=== PATIENT | male | born 1990 | race Caucasian/White ===

== ENCOUNTER 2018-05-29 03:52 | Inpatient (IN) ==
[2018-05-29] MEDS ORDERED: Morphine Inj 4 MG/ML Vial IV.PUSH ONE ×2 (04:13→07:41)
[2018-05-29 05:04] LABS: Baso % (Auto) 0.6 % (0.0-2.0); Eos # (Auto) 0.1 th/mm3 (0.0-0.4); Eos % (Auto) 0.7 % (0.0-4.0); Hematocrit 45.6 % (39.0-51.0); Hemoglobin 15.7 gm/dL (13.0-17.0); Lymph # (Auto) 1.8 th/mm3 (1.0-4.8); Lymph % (Auto) 24.5 % (9.0-44.0); Mean Corpuscular HGB Conc 34.3 % (32.0-36.0); Mean Corpuscular Hemoglobin 29.8 pg (27.0-34.0); Mean Platelet Volume 9.6 fL (7.0-11.0); Mono # (Auto) 0.4 th/mm3 (0.0-0.9); Mono % (Auto) 4.9 % (0.0-8.0); Neut # (Auto) 5.1 th/mm3 (1.8-7.7); Neut % (Auto) 69.3 % (16.0-70.0); Platelet Count 246 th/mm3 (150-450); Red Blood Count 5.25 mil/mm3 (4.50-5.90); Red Cell Distribution Width 13.2 % (11.6-17.2); White Blood Count 7.4 th/mm3 (4.0-11.0)
[2018-05-29 05:08] LABS: Activated Partial Thrombo Time 24.4 sec (23.4-31.7); INR 1.1 Ratio; Prothrombin Time 10.7 sec (9.8-11.6)
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
[2018-05-29] MEDS: Sod Chloride 0.9% Inj 1,000 ML IV.CONT SCH ×2 (08:34→20:02)
[2018-05-29 09:08] LABS: Anion Gap 12 meq/L (5-15)
[2018-05-29 09:15] LABS: Blood Urea Nitrogen 13 mg/dL (7-18); Calcium 8.2 mg/dL (8.5-10.1); Chloride 108 meq/L (98-107); Glomerular Filtration Rate Greater Than 89 mL/min (>89); Glucose,Random 85 mg/dL (74-106); Potassium 4.4 meq/L (3.5-5.1); Sodium 141 meq/L (136-145)
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
[2018-05-29] MEDS: Morphine Sulfate Inj 2 MG/ML Vial IV.PUSH PRN ×2 (10:35→17:28)
[2018-05-29] MEDS ORDERED: ceFAZolin 2 GM Premix Inj 2 GM/50 ML PIGGYBACK IV.SIG ONE (13:34)
[2018-05-29] MEDS ORDERED: Bupivacaine/Epinephrine Inj 0.25% 50 ML Vial ONE (13:37)
[2018-05-29] MEDS ORDERED: Lidocaine PF 1% Inj 5 ML Syringe OTHER ONE (13:43)
[2018-05-29] MEDS ORDERED: Ketamine Inj 50 MG/5 ML Syringe IV.PUSH ONE (14:13)
[2018-05-29] MEDS ORDERED: *Meperidine Inj 25 MG/ML Vial PERIprocedural Use ONLY ONE (14:39)
[2018-05-29] MEDS ORDERED: *Ondansetron Inj 4 MG/2 ML Vial PERIprocedural Use ONLY ONE (14:40)
--- NOTE | 2018-05-29 14:42 | P.OP ---
- Preoperative Diagnosis (1) Bimalleolar fracture of right ankle - Postoperative Diagnosis (1) Bimalleolar fracture of right ankle Date of procedure: 05/29/18 Procedure: Open reduction internal fixation right ankle medial malleolus fracture. Implants: Synthes 4.0 cannulated screws Anesthesia: GETA Surgeon: Paulino Genao MD Search Analyst: Mikala Sanchez PA-C (Ashley) The surgical procedure was assisted by my physician's periodicals library assistant. Her presence was necessary throughout the case for manipulation and positioning of the surgical extremity. My PA was assisting me throughout the duration of this procedure. The skill set of the physician periodicals library assistant was medically necessary to complete this procedure. During the surgical case the surgical training specialist was working at the back table and the physician periodicals library assistant was directly assisting me. Estimated blood loss (mL): 25 Tourniquet time (min): 17 Pathology: none sent Operation and Findings: The patient was taken to the operative suite and after undergoing an adequate level of general anesthesia was kept supine on the operating table. Preoperative antibiotics consisted of Ancef 2 g IV. The right lower extremity was then prepped and draped in usual sterile fashion with alcohol and Hibiclens. Fluoroscopic examination of the ankle revealed a nondisplaced and stable lateral malleolus fracture. The medial malleolus reduced nicely with manipulation. It was therefore elected to fix the medial side only. A 3 cm incision was made over the inferior aspect of the medial malleolus. This was carried out through skin and subtenons tissue with a knife. Blunt dissection was carried out to the tip of the medial malleolus. 2 threaded K wires were advanced from distal to proximal. The position was checked both the AP and lateral planes of the C arm. The reduction was anatomic. The cortex was overdrilled. 2 cannulated 4.0 screws were then seated. The position of the fracture reduction and placement of the internal fixation were checked both the AP lateral planes of the C arm. The wound was then thoroughly irrigated. It was closed in layers utilizing 3-0 nylon on the skin. Sterile dressings were applied, the patient was placed into a splint, awakened, transferred to the hospital bed and taken to the recovery room in stable condition.
[2018-05-29] MEDS ORDERED: Morphine Inj 4 MG/ML Vial IV.PUSH PRN (14:45)
[2018-05-29] MEDS ORDERED: Temazepam 15 MG Capsule PO PRN (14:45)
[2018-05-29] MEDS ORDERED: Post-op Orders (for Pharmacy) OTHER STA (14:45)
[2018-05-29] MEDS ORDERED: Acetaminophen 325 MG Tablet PO PRN (14:45)
[2018-05-29] MEDS ORDERED: Bisacodyl 10 MG Supp RECTAL PRN (14:45)
[2018-05-29] MEDS ORDERED: fentaNYL Citrate Inj 100 MCG/2 ML Ampul ONE (14:50)
--- NOTE | 2018-05-29 14:58 | XR ---
EXAM DATE: 05/29/2018 2:37 PM EST AGE/SEX: 27 years / Male INDICATIONS: Post hardware placement right ankle CLINICAL DATA: This is the patient's subsequent encounter. Patient reports that signs and symptoms h ave been present for 2 days and indicates a pain score of Nonresponsive. MEDICAL/SURGICAL HISTORY: Non-responsive. Non-responsive. COMPARISON: No prior exams available for comparison. FINDINGS: 2 views of the right ankle demonstrates open reduction and internal fixation of the medial malleolus with 2 screws. CONCLUSION: ORIF of the right ankle. Electronically signed by: Yordan Reeves MD 05/29/2018 2:57 PM EST
[2018-05-29] MEDS: Ketorolac Inj 30 MG/ML (IVP) Vial IV.PUSH SCH ×2 (15:27→20:02)
[2018-05-29] MEDS: oxyCODONE/Acetaminophen 10/325 Tablet PO PRN ×2 (15:39→20:00)
[2018-05-29] MEDS: ceFAZolin 2 GM Premix Inj 2 GM/50 ML PIGGYBACK IV.SIG SCH (20:02)
[2018-05-29] MEDS: Senna/Docusate Sodium 8.6/50 MG Tablet PO SCH (20:03)
[2018-05-30] MEDS: oxyCODONE/Acetaminophen 10/325 Tablet PO PRN ×4 (00:28→17:30)
[2018-05-30] MEDS: Ketorolac Inj 30 MG/ML (IVP) Vial IV.PUSH SCH ×4 (02:16→20:11)
[2018-05-30] MEDS: ceFAZolin 2 GM Premix Inj 2 GM/50 ML PIGGYBACK IV.SIG SCH ×2 (02:17→08:11)
[2018-05-30] MEDS: Morphine Sulfate Inj 2 MG/ML Vial IV.PUSH PRN ×3 (02:22→13:33)
--- NOTE | 2018-05-30 07:32 | P.PNOP ---
Subjective Interval history: Pt admits his pain is much better controlled. He states he lives in [place] and will seek orthopedic f/u there. Pt understands the importance of this Physical Exam Vital signs: Vital Signs 05/29/18 08:51 05/29/18 12:38 05/29/18 14:39 Temperature 97.9 F 97.9 F Pulse Rate 88 78 81 Respiratory Rate 17 18 20 Blood Pressure 133/87 126/71 161/82 H Pulse Oximetry 97 97 100 05/29/18 14:45 05/29/18 15:00 05/29/18 15:14 Temperature Pulse Rate 80 75 Respiratory Rate 17 18 Blood Pressure 135/70 128/66 Pulse Oximetry 99 100 100 05/29/18 15:15 05/29/18 15:28 05/29/18 16:15 Temperature 98.8 F 97.9 F Pulse Rate 83 78 73 Respiratory Rate 17 20 18 Blood Pressure 139/76 131/78 153/66 H Pulse Oximetry 99 98 94 L 05/29/18 16:53 05/29/18 20:00 05/29/18 20:20 Temperature 97.3 F L Pulse Rate 77 72 Respiratory Rate 18 Blood Pressure 141/78 H Pulse Oximetry 94 L 97 05/30/18 00:00 05/30/18 00:06 05/30/18 03:55 Temperature 97.2 F L Pulse Rate 65 68 61 Respiratory Rate 18 Blood Pressure 139/84 Pulse Oximetry 98 05/30/18 04:00 Temperature 97.4 F L Pulse Rate 70 Respiratory Rate 18 Blood Pressure 120/68 Pulse Oximetry 99 Intake & Output 05/29/18 05/30/18 05/30/18 18:59 06:59 18:59 Intake Total 850 / 850 2099 / 2099 Output Total 2405 / 2405 1375 / 1375 Balance -1555 / -1555 725 / 725 Weight 94.1 kg 99.7 kg Intake: IV 50 / 50 2099 / 2099 LR 1000 mL Inj 1,000 ML @ 80 1000 / 1000 mls/hr IV.CONT .[id number] [facility] Rx# :[id number] NS Inj 1,000 ML @ 100 mls/hr IV 1000 / 1000 .CONT .Q10H [facility] Rx#:[id number] Ancef 2 GM Premix Inj 2 gm In 50 / 50 100 / 100 50 ml @ 100 mls/hr IV.SIG Q6H [facility] Rx#:[id number] Anesthesia Amount 800 / 800 Output: Urine 2400 / 2400 1375 / 1375 Estimated Blood Loss 5 / 5 Other: # Voids 450 Date of Last Bowel Movement 05/28/18 05/28/18 Weight On Admission 94.1 kg Narrative: Dressing and splint dry and intact. Freely able to move distal digits. No calf pain. Good cap refill. 2+ pedal pulses. Neurovascular intact. Results - Labs CBC & Chem 7: 05/29/18 04:47 05/29/18 06:12 Laboratory Results - last 24 hr 05/29/18 06:12 Sodium 141 Potassium 4.4 Chloride 108 H Carbon Dioxide 21.0 Anion Gap 12 BUN 13 Creatinine 0.74 Estimated GFR Greater than 89 Random Glucose 85 Calcium 8.2 L - Imaging Impressions Ankle X-Ray 05/29/18 00:00 CONCLUSION: ORIF of the right ankle. - Procedures Open reduction internal fixation right ankle medial malleolus fracture. 05/29/18 Dr Genao Assessment and Plan - Assessment and Plan POD #1 Open reduction internal fixation right ankle medial malleolus fracture. Ortho status stable Progress rehab. strict Non w/b RLE Gait training with crutches ASA 81mg BID for 20 days for DVT prophylaxis. Pt will be fitted for fracture boot, he understands he is to remain non w/b until ortho f/u RN to assist with dressing change Ortho f/u in [place] in 7-10 days. .
[2018-05-30] MEDS: Senna/Docusate Sodium 8.6/50 MG Tablet PO SCH ×2 (08:11→20:11)
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
== END 2018-05-30 20:52 | disposition home or self-care (01) ==
LOC: NEPE 03:52 → NEDA 07:40 → N06 08:07 → NEDA 08:11 → N06 10:20
PROVIDERS: ADMIT Internal Medicine; ATTEND Internal Medicine
PROC: ORIFANK (2018-05-29 13:43)